=== PATIENT | female | born 1965 | race Caucasian/White ===

== ENCOUNTER 2024-01-08 09:43 | Emergency (ER) | payer BC, SELFPAY ==
[2024-01-08 09:46] VITALS: BP 142/79; PULSE 80; RESP 18; TEMP 36.6; O2SAT 99
--- NOTE | 2024-01-08 09:58 | CRLHL7_ITS ---
For Patients: As a result of the Century Cures Act, medical imaging exams and procedure reports are released immediately into your electronic medical record. You may view this report before your referring provider. If you have questions, please contact your health care provider. Indication: Right lower quadrant abdominal pain. Technique: CT of the abdomen and pelvis was performed following the administration of 59 mL Isovue 370. Comparison: None available. Findings: Visualized lung bases: 3 mm left lower lobe subpleural pulmonary nodule (3/15). Liver: No focal liver lesion. Normal gallbladder. No biliary ductal dilation. Pancreas: Unremarkable. Spleen: Unremarkable. Adrenals: Unremarkable. Kidneys: Symmetric renal enhancement. Two small to characterize hypodensity within the right kidney. Right extrarenal pelvis. No hydronephrosis. Aorta/IVC: Mild atherosclerotic aortic calcifications without aneurysmal dilation. Lymph nodes: No lymphadenopathy. Bowel: Nonobstructed bowel. Moderate colonic fecal burden. Normal appendix. No localized inflammatory changes. No intraperitoneal free air or fluid. Pelvis: Decompressed bladder. Otherwise unremarkable. Bones/body wall: Unremarkable for age. Impression: 1. No acute abnormality identified in the abdomen or pelvis. 2. Moderate colonic fecal burden. 3. Left lower lobe pulmonary nodule measuring 3 mm. If this patient is at increased risk of lung cancer, consider chest CT follow-up in 12 months. 4. Additional chronic/incidental findings as described. Please note that all CT scans at this facility use dose modulation, iterative reconstruction, and/or weight-based dosing when appropriate to reduce radiation dose to as low as reasonably achievable. Dictated by Arlen Delvalle MD @ 01/08/2024 10:44:40 AM (Electronically Signed)
--- NOTE | 2024-01-08 10:01 | ED_ITS ---
HPI - General Adult General Chief complaint: Abdominal Pain Stated complaint: Abdominal pain Time Seen by Provider: 01/08/24 09:48 History of Present Illness HPI narrative: Patient is a 58-year-old female from [place] who is in [place] visiting for her daughter's graduation which is occurring right now. She woke up couple hours ago with significant abdominal pain right-sided right lower quadrant. She has had no abdominal surgery, she is generally healthy other than osteoporosis for which she is to be taking calcium and vitamin-D. She takes this occasionally, she has had no fevers chills nausea, constipation. She reports the pain is pretty significant. Hurts more with movement or touching her abdomen. She has had family members have had gallbladder issues and diverticulitis. She is generally quite healthy takes no home medications. She has had no recent illness. No other family members are ill. Related Data Home Medications ?Medication ?Instructions ?Recorded ?Confirmed No Known Home Medications 01/08/24 01/08/24 Allergies Allergy/AdvReac Type Severity Reaction Status Date / Time No Known Drug Allergies Allergy Verified 01/08/24 10:34 Review of Systems Status of ROS: Reports: 6 or more systems reviewed and unremarkable except as noted in History and below PFSH [facility] Social History Smoking Status: Never smoker How often do you have a drink containing alcohol: 4 or more times a week How many standard drinks containing alcohol do you have on a typical day: 1 or 2 How often do you have six or more drinks on one occasion: Never AUDIT-C Alcohol total score: 4 Non-prescribed substance use: denies use Exam Narrative: Exam Narrative: Objective patient is afebrile, vital signs are within normal limits Alert orient x3 no distress Lungs clear Heart rhythm regular the out murmur Abdomen bowel sounds slightly hypoactive, mildly distended she is slightly tympanitic, has right lower quadrant pain to palpation and some voluntary guarding. No real rigidity, but she does have pain in her right lower quadrant when I tap on her left lower quadrant. No back pain Extremities normal neurologic nonfocal Const: Vital Signs, click to edit/add: Vital Signs - 24 hr 01/08/24 09:46 01/08/24 11:10 Temperature 97.9 F Pulse Rate [Right Pulse Oximeter] 80 68 Respiratory Rate 18 16 Blood Pressure [Ri ght Upper Arm] 142/79 H 119/82 Pulse Oximetry 99 98 Oxygen Delivery Me thod Room Air Room Air Course Vital Signs Vital signs: Initial Vital Signs Temperature 97.9 F 01/08/24 09:46 Temperature Source Temporal Artery Scan 01/08/24 09:46 Pulse Rate 80 01/08/24 09:46 Respiratory Rate 18 01/08/24 09:46 Blood Pressure 142/79 H 01/08/24 09:46 Blood Pressure Mean 100 01/08/24 09:46 Blood Pressure Position Sitting 01/08/24 09:46 Pulse Oximetry 99 01/08/24 09:46 Oxygen Delivery Method Room Air 01/08/24 09:46 Vital Signs Temperature 97.9 F 01/08/24 09:46 Pulse Rate 80 01/08/24 09:46 Respiratory Rate 18 01/08/24 09:46 Blood Pressure 142/79 H 01/08/24 09:46 Pulse Oximetry 99 01/08/24 09:46 Oxygen Delivery Method Room Air 01/08/24 09:46 Temperature 97.9 F 01/08/24 09:46 Pulse Rate 68 01/08/24 11:10 Respiratory Rate 16 01/08/24 11:10 Blood Pressure 119/82 01/08/24 11:10 Pulse Oximetry 98 01/08/24 11:10 Oxygen Delivery Method Room Air 01/08/24 11:10 Medications Administered Medications: Discontinued Medications Generic Name Dose Route Start Last Admin Trade Name Freq PRN Reason Stop Dose Admin Docusate Sodium/Benzocaine 5 ml 01/08/24 10:48 01/08/24 12:06 Docusate Sodium/Benzocaine 5 Ml Enema OR 01/08/24 10:49 5 ml ONCE ONE Administration Sodium Chloride 1,000 mls @ 6,000 mls/hr 01/08/24 10:00 01/08/24 11:58 0.9 % Sodium Chloride 1000 Ml IV 01/08/24 10:09 0 mls/hr .Q10M ORA Infusion Morphine Sulfate 2 mg 01/08/24 10:15 01/08/24 11:04 Morphine 2 Mg/Ml Inj IVP 01/08/24 10:16 Not Given ONCE ONE Medical Decision Making MDM Narrative Medical decision making narrative: 58-year-old female with right lower quadrant abdominal pain rule out appendicitis, rule out diverticulitis, patient did have a bowel movement this morning. She has had normal urination, no hematuria. I think checking a CT scan with IV contrast be appropriate to rule out appendicitis, or diverticulitis. Will also check labs, IV fluid, IV morphine. Disposition pending findings above. Addendum 10:[address] the patient's CT scan of the abdomen shows no acute findings, there is a small left lung nodule that she have repeat CT in a year patient will be informed of this. She does have a good amount of stool burden. I think also be important to get a pelvic ultrasound [facility] ovarian torsion ovarian mass, and will get this done, and then given Enemeez if this is within normal limits. Patient also has a small left lower lobe pulmonary nodule that she should have a repeat CT scan in a year as mention. Addendum 12:00 p.m.: The patient has a negative pelvic ultrasound, and will try an Enemeez suppository. Will also recommend she do MiraLax a capful twice a day in water until sure bowels are moving and she is more loose. Increase fluid intake and fiber intake. Return as needed. Suspect most her symptoms are due to constipation given her negative pelvic CT a negative CT of the abdomen Lab Data Labs: Lab Results 01/08/24 01/08/24 Range/Units 09:59 10:10 WBC 5.46 (4.50-11.00) K/uL RBC 4.35 (4.00-5.20) m/uL Hgb 13.1 (12.0-16.0) gm/dL Hct 40.2 (33.0-51.0) % MCV 92 (80-100) fL MCH 30 (26-34) pg MCHC 33 (32-36) gm/dL RDW Coeff of Jody 12.8 (11.5-15.5) % Plt Count 302 (140-440) K/uL Neut % (Auto) 55.7 (42.0-72.0) % Lymph % (Auto) 31.0 (20-44) % [place] % (Auto) 10.6 (0.0-11.0) % Eos % (Auto) 2.0 (0.0-7.0) % Baso % (Auto) 0.7 (0.0-3.0) % Neut # (Auto) 3.04 (1.7-7.0) K/uL Lymph # (Auto) 1.69 (0.90-2.90) K/uL [place] # (Auto) 0.60 (0.00-0.90) K/UL Eos # (Auto) 0.11 (0.00-0.50) K/uL Baso # (Auto) 0.04 (0.00-0.30) K/uL Abs Immat Gran (auto) 0.00 (0.00-0.30) K/uL Imm/Tot Granulo (auto) 0.0 % Sodium 138 (135-149) mmol/L Potassium 4.2 (3.6-5.1) mmol/L Chloride 105 (96-114) mmol/L Carbon Dioxide 26 (20-32) mmol/L Anion Gap 7 (7-15) mEq/L BUN 19 (7-30) mg/dL Creatinine 0.7 (0.5-1.5) mg/dL Estimated Creat Clear 73.35 Estimated GFR 101 ml/min Glucose 96 (60-115) mg/dL Calcium 9.0 (8.4-10.6) mg/dL Total Bilirubin 1.4 (0.1-1.5) mg/dL Direct Bilirubin 0.4 (0.0-0.5) mg/dL AST 29 (12-35) U/L ALT 21 (4-35) U/L Alkaline Phosphatase 75 (40-150) U/L C-Reactive Protein < 0.5 L (0.5-1.0) mg/dL Total Protein 7.2 (6.0-8.3) g/dL Albumin 4.6 (3.3-5.0) g/dL Amylase 75 (18-89) U/L Urine Color Yellow (Yellow) Urine Appearance Clear (Clear) Urine pH 6.5 (5.0-8.5) Ur Specific [place] 1.025 (1.000-1.030) Urine Protein Negative (Negative) Urine Glucose (UA) Negative (Negative) Urine Ketones Negative (Negative) Urine Blood Negative (Negative) Urine Nitrite Negative (Negative) Urine Bilirubin Negative (Negative) Urine Urobilinogen 0.2 (0.2-1.0) Ur Leukocyte Esterase Negative (Negative) Urine RBC 0-2 (0-2) Urine WBC 0-2 (0-5) Ur Squamous Epith Cells Few (None-Few) Urine Bacteria None (None) Discharge Plan Discharge Clinical Impression: Right sided abdominal pain, Constipation Patient Disposition: Home w/ Parent or Adult Condition: Improved Additional Instructions: MiraLax 1 capful in water twice a day for the next couple of days until stools are moving, would recommend increased fiber and fluid in your diet. Activity as tolerated. Follow up with regular doctor in the next week to 10 days. Activity Level: Light activity Discharge Diet: High Fiber Prescriptions: No Action No Known Home Medications Stand Alone Forms: [employer] Info Instructions
[2024-01-08 10:11] LABS: Appearance Urine Clear (Clear); Bilirubin Urine Negative (Negative); Blood Urine Negative (Negative); Color Urine Yellow (Yellow); Glucose Urine Negative (Negative); Ketones Urine Negative (Negative); Leukocyte Esterase Urine Negative (Negative); Nitrite Urine Negative (Negative); Protein Urine Negative (Negative); Specific Gravity Urine 1.025 (1.000-1.030); Urobilinogen Urine 0.2 (0.2-1.0); pH Urine 6.5 (5.0-8.5)
[2024-01-08 10:18] LABS: RBC Urine 0-2 (0-2); Squamous Epithelial Cell Urine Few (None-Few); WBC Urine 0-2 (0-5)
[2024-01-08 10:22] LABS: Basophils Absolute Auto 0.04 K/uL (0.00-0.30); Basophils Percent Auto 0.7 % (0.0-3.0); Eosinophils Absolute Auto 0.11 K/uL (0.00-0.50); Hematocrit 40.2 % (33.0-51.0); Hemoglobin* 13.1 gm/dL (12.0-16.0); Lymphocytes Absolute Auto 1.69 K/uL (0.90-2.90); Mean Corpuscular HGB Conc 33 gm/dL (32-36); Mean Corpuscular Hemoglobin 30 pg (26-34); Mean Corpuscular Volume 92 fL (80-100); Monocytes Percent Auto 10.6 % (0.0-11.0); Neutrophils Absolute Auto 3.04 K/uL (1.7-7.0); Neutrophils Percent Auto 55.7 % (42.0-72.0); Platelet Count* 302 K/uL (140-440); RDW Coefficient of Variation % 12.8 % (11.5-15.5); Red Blood Count 4.35 m/uL (4.00-5.20); White Blood Count* 5.46 K/uL (4.50-11.00)
[2024-01-08 10:23] LABS: Slide Review Reflex No
[2024-01-08 10:38] LABS: Chloride* 105 mmol/L (96-114); Potassium* 4.2 mmol/L (3.6-5.1); Sodium* 138 mmol/L (135-149)
[2024-01-08 10:39] LABS: Albumin* 4.6 g/dL (3.3-5.0)
[2024-01-08 10:41] LABS: Amylase* 75 U/L (18-89); Anion Gap 7 mEq/L (7-15); Blood Urea Nitrogen* 19 mg/dL (7-30); Carbon Dioxide* 26 mmol/L (20-32); Creatinine* 0.7 mg/dL (0.5-1.5); Est. Creatinine Clearance* 73.35; Estimated Glomerular Filt Rate 101 ml/min; Glucose* 96 mg/dL (60-115)
[2024-01-08 10:42] LABS: Alanine Aminotransferase* 21 U/L (4-35); Alkaline Phosphatase* 75 U/L (40-150); Aspartate Amino Transferase* 29 U/L (12-35); Bilirubin Direct* 0.4 mg/dL (0.0-0.5); Bilirubin Total* 1.4 mg/dL (0.1-1.5); Total Protein* 7.2 g/dL (6.0-8.3)
[2024-01-08 10:46] LABS: C Reactive Protein* < 0.5 mg/dL (0.5-1.0)
--- NOTE | 2024-01-08 10:48 | CRLHL7_ITS ---
For Patients: As a result of the Century Cures Act, medical imaging exams and procedure reports are released immediately into your electronic medical record. You may view this report before your referring provider. If you have questions, please contact your health care provider. INDICATION: Lower abdominal pain. TECHNIQUE: Ultrasound pelvis transvaginal. Real-time sonographic images with spectral and color Doppler imaging of the ovaries were obtained. COMPARISON: None. FINDINGS: Uterus: 5.0 x 2.3 x 3.5 cm. Normal echotexture of the myometrium. No masses. Endometrium: Endometrial thickness measures 2 mm. No sign of endometrial mass or fluid. Right ovary 2.1 x 0.9 x 1.3 cm (volume of 1.4 mL). Left ovary 2.3 x 1.1 x 1.3 cm (volume of 1.7 mL). No ovarian or adnexal masses. Arterial blood flow is demonstrated in both ovaries. Cul-de-sac: No significant free fluid. IMPRESSION: Unremarkable pelvic ultrasound. Dictated by Arlen Delvalle MD @ 01/08/2024 12:34:54 PM (Electronically Signed)
[2024-01-08] MEDS: 0.9 % SODIUM CHLORIDE 1000 ml 1,000 ML 6000 ML IV (11:04)
[2024-01-08 11:10] VITALS: BP 119/82; PULSE 68; RESP 16; O2SAT 98
[2024-01-08] MEDS: DOCUSATE SODIUM/BENZOCAINE 5 ML ENEMA PR (12:06)
== END 2024-01-08 12:54 | disposition home or self-care (01) ==
PROVIDERS: Emergency Provider Family Medicine
DX: R10.31 Right lower quadrant pain (principal); K59.00 Constipation, unspecified
CPT/HCPCS: 36415; 74177; 76830; 80048; 80076; 81001; 82150; 85025; 86140; 87086; 93976; 99284; 99285; A9270; J7030; Q9967